=== PATIENT | male | born 1995 | race Caucasian/White ===

== ENCOUNTER 2016-09-24 00:48 | Inpatient (IN) | payer BC, OTHER ==
--- NOTE | 2016-09-24 00:57 | HP ---
CIWA Score - CIWA Score Nausea/Vomitin Muscle Tremors: 2 Anxiety: 2 Agitation: 2 Paroxysmal Sweats: 3 Orientation: 1-Uncertain about Date Tacttile Disturbances: 2-Mild Itch/Numbness/Burn Auditory Disturbances: 2-Mild Harshness/Frighten Visual Disturbances: 2-Mild Sensitivity Headache: 2-Mild CIWA-Ar Total Score: 20 Admission ROS BHS - HPI Chief Complaint: DEPENDENT ON ETOH AND MARIJUANA TOOK A TAB. OF BENZO. YESTERDAY FROM SOMEONE Allergies/Adverse Reactions: Allergies Allergy/AdvReac Type Severity Reaction Status Date / Time Fish Containing Products Allergy Difficulty Verified 02/09/14 00:17 Breathing fish derived Allergy Difficulty Verified 02/09/14 00:17 Breathing seafood Allergy Mild Difficulty Uncoded 02/09/14 00:18 Breathing History of Present Illness: REQUESTING ADMISSION TO THE DETOX UNIT AND CAME FOR H AND PE Exam Limitations: No Limitations - Ebola screening Have you traveled outside of the country in the last 21 days: No Have you had contact with anyone from an Ebola affected area: No Have you been sick,other than usual withdrawal symptoms: No Do you have a fever: No - Review of Systems Constitutional: See HPI, Malaise, Weakness EENT: reports: No Symptoms Reported, See HPI Respiratory: reports: No Symptoms reported, See HPI Cardiac: reports: No Symptoms Reported, See HPI GI: reports: See HPI, Nausea, Abdominal cramping Musculoskeletal: reports: See HPI, Muscle Pain, Muscle Weakness Integumentary: reports: See HPI, Flushing, Sweating Neuro: reports: See HPI, Headache, Tremors, Weakness Endocrine: reports: No Symptoms Reported, See HPI Hematology: reports: No Symptoms Reported, See HPI Psychiatric: reports: Anxious, Depressed Patient History - Patient Medical History Hx Anemia: No Hx Asthma: Yes (on albuterol inhaler) Hx Chronic Obstructive Pulmonary Disease (COPD): No Hx Cancer: No Hx Cardiac Disorders: No Hx Congestive Heart Failure: No Hx Hypertension: No Hx Hypercholesterolemia: No Hx Pacemaker: No HX Cerebrovascular Accident: No Hx Seizures: No Hx Dementia: No Hx Diabetes: No Hx Gastrointestinal Disorders: No Hx Liver Disease: No Hx Genitourinary Disorders: No Hx Sexually Transmitted Disorders: No Hx Renal Disease (ESRD): No Hx Thyroid Disease: No Hx Human Immunodeficiency Virus (HIV): No Hx Hepatitis C: No Hx Depression: No Hx Suicide Attempt: No Hx Bipolar Disorder: No Hx Schizophrenia: No - Patient Surgical History Past Surgical History: No Hx Neurologic Surgery: No Hx Cataract Extraction: No Hx Cardiac Surgery: No Hx Lung Surgery: No Hx Breast Surgery: No Hx Breast Biopsy: No Hx Abdominal Surgery: No Hx Appendectomy: No Hx Cholecystectomy: No Hx Genitourinary Surgery: No Hx Section: No Hx Orthopedic Surgery: No Anesthesia Reaction: No - PPD History Date: 06/04/13 - Smoking Cessation Smoking history: Never smoked Have you smoked in the past 12 months: No Cigars Per Day: 0 Hx Chewing Tobacco Use: No Initiated information on smoking cessation: No 'Breaking Loose' booklet given: 09/24/16 - Substance & Tx. History Hx Alcohol Use: Yes Substance Use Type: Alcohol, Marijuana Hx Substance Use Treatment: Yes - Substances Abused Alcohol Route: Oral Frequency: Daily Amount used: BEER 6 CANS/LIQUOR 1 P/D Age of first use: 16 Date of Last Use: 09/23/16 Marijuana/Hashish Route: Smoking Frequency: Daily Amount used: $30-40/D Age of first use: 16 Date of Last Use: 09/22/16 Family Disease History - Family Disease History Family History: Denies Admission Physical Exam [facility] - Physical General Appearance: Yes: No Apparent Distress, Nourished, Appropriately Dressed , Alcohol on Breath, Tremorous, Sweating, Anxious HEENTM: Yes: Hearing grossly Normal, Normocephalic, Normal Voice, ZAHRAA Respiratory: Yes: Chest Non-Tender, Lungs Clear, Normal Breath Sounds, No Respiratory Distress, No Accessory Muscle Use Breast: Yes: Breast Exam Deferred Cardiology: Yes: Regular Rhythm, S1, S2, Tachycardia Abdominal: Yes: Normal Bowel Sounds, Non Tender, Soft, Protuberent Back: Yes: Normal Inspection Musculoskeletal: Yes: full range of Motion, Gait Steady, Muscle Pain, Muscle weakness Extremities: Yes: Normal Capillary Refill, Normal Range of Motion, Non-Tender, Tremors Neurological: Yes: Alert, Motor Strength 5/5, Confused, Depressed Affect Integumentary: Yes: Warm, Moist Lymphatic: Yes: Within Normal Limits - Addiitonal Findings: DISORIENTED NOW AND THEN DELAYED AND SLOW RESPONSE TO QUESTIONS NOTED - Diagnostic (1) Alcohol dependence Current Visit: Yes Status: Chronic Qualifiers: Substance use status: uncomplicated Qualified Code(s): F10.20 - Alcohol dependence, uncomplicated (2) Asthma Current Visit: No Status: Chronic Qualifiers: Asthma severity: unspecified severity (3) Cannabis dependence Current Visit: Yes Status: Chronic Cleared for Admission BHS - Detox or Rehab [facility] Level of Care: Medically Managed Detox Regimen/Protocol: Librium BHS Breath Alcohol Content Breath Alcohol Content: 0.055 Vital Signs - Vital Signs Vital Signs Refused: No Temperature: 97.3 F Temperature Source: Oral Pulse Rate: 90 Respiratory Rate: 14 Blood Pressure: 122/71 BP Location: Left Arm Blood Pressure Position: Sitting - Height Height: 5 ft 5 in - Weight Weight: 164 lb Weight Measurement Method: Standing Scale Body Mass Index (BMI): 27.3 Urine Drug Screen - Test Device Lot Number: [id number] Expiration Date: 05/29/18 - Control Is Test Valid: Yes - Results Drug Screen Negative: No Urine Drug Screen Results: THC-Marijuana, BZO-Benzodiazepines
[2016-09-24 01:10] VITALS: BMI 27.3
[2016-09-24] MEDS ORDERED: hydrOXYzine PAMOATE 25 MG CAPSULE (FP) PO PRN (01:10)
[2016-09-24] MEDS ORDERED: guaiFENesin/D-METHORPHAN HB 10 ML UNIT-DOSE CUPS PO PRN (01:10)
[2016-09-24] MEDS ORDERED: chlordiazePOXIDE HCL 25 MG CAPSULE PO PRN (01:10)
[2016-09-24] MEDS ORDERED: LOPERAMIDE HCL 2 MG CAPSULE PO PRN (01:10)
[2016-09-24] MEDS ORDERED: P-EPHED 60MG/TRIPROLIDI 2.5MG TABLET PO PRN (01:10)
[2016-09-24] MEDS ORDERED: IBUPROFEN 400 MG TABLET (FP) PO PRN (01:10)
[2016-09-24] MEDS ORDERED: MENTHOL/PHENOL 1 EACH UD MM PRN (01:10)
[2016-09-24] MEDS ORDERED: diphenhydrAMINE HCL 50 MG CAPSULE PO PRN (01:10)
[2016-09-24] MEDS ORDERED: MAGNESIUM HYDROX 2400MG/30ML ORAL SUSPENSION 30 ML CUP PO PRN (01:10)
[2016-09-24] MEDS ORDERED: MAGNESIUM CITRATE 300 ML BOTTLE PO PRN (01:10)
[2016-09-24] MEDS ORDERED: chlordiazePOXIDE HCL 25 MG CAPSULE PO ONE (01:10)
[2016-09-24] MEDS ORDERED: MAG HYDROX/AL HYDROX/SIMETH 30 ML UNIT-DOSE CUP PO PRN (01:10)
[2016-09-24] MEDS ORDERED: ACETAMINOPHEN 325 MG TABLET (FP) PO PRN (01:10)
[2016-09-24] MEDS ORDERED: ALBUTEROL SO4 2.5/IPRATROPIUM 0.5 INH SOL 3 ML VIAL.NEB. NEB PRN (01:13)
[2016-09-24] MEDS: chlordiazePOXIDE HCL 25 MG CAPSULE PO SCH ×4 (05:48→22:37)
[2016-09-24] MEDS ORDERED: PRENATAL VITAMINS W/ FOLIC ACID TABLET (FP) PO SCH (10:00)
--- NOTE | 2016-09-24 10:58 | EKG ---
Test Reason : Blood Pressure : / mmHG Vent. Rate : 092 BPM Atrial Rate : 092 BPM P-R Int : 162 ms QRS Dur : 092 ms QT Int : 356 ms P-R-T Axes : 061 062 049 degrees QTc Int : 440 ms NORMAL SINUS RHYTHM NORMAL ECG NO PREVIOUS ECGS AVAILABLE Confirmed by BINDU MCNEIL MD ([id number]) on 09/24/2016 10:57:39 AM Referred By: Confirmed By:BINDU MCNEIL MD
--- NOTE | 2016-09-24 11:52 | CONSULT ---
[facility] Psychiatric Consult - Data Date of interview: 09/24/16 Admission source: [facility] Identifying data: Readmission to [facility] for this 21 y/o male seeking detox treatment for alcohol and marijuana dependence.Patient is single without children,domiciled,unemployed and supported by relatives. Substance Abuse History: - Smoking Cessation. Smoking history: Never smoked. Have you smoked in the past 12 months: No. Cigars Per Day: 0. Hx Chewing Tobacco Use: No. Initiated information on smoking cessation: No. 'Breaking Loose' booklet given: 09/24/16. - Substance & Tx. History. Hx Alcohol Use: Yes. Substance Use Type: Alcohol, Marijuana. Hx Substance Use Treatment: Yes. - Substances Abused. Alcohol. Route: Oral. Frequency: Daily. Amount used: BEER 6 CANS/LIQUOR 1 P/D. Age of first use: 16. Date of Last Use: . Marijuana/Hashish. Route: Smoking. Frequency: Daily. Amount used: $30 -40/D. Age of first use: 16. Date of Last Use: 09/22/16. Confirmed by patient. Medical History: Bronchial asthma. Psychiatric History: Patient denies. Physical/Sexual Abuse/Trauma History: Patient denies. Additional Comment: Urine Drug Screen Results: THC-Marijuana, BZO- Benzodiazepines.Noted. Mental Status Exam - Mental Status Exam Alert and Oriented to: Time, Place, Person Cognitive Function: Good Patient Appearance: Well Groomed Mood: Hopeful, Euthymic Affect: Appropriate, Normal Range Patient Behavior: Fatigued, Appropriate, Cooperative Speech Pattern: Clear Voice Loudness: Normal Thought Process: Goal Oriented Thought Disorder: Not Present Hallucinations: Denies Suicidal Ideation: Denies Homicidal Ideation: Denies Insight/Judgement: Poor Sleep: Poorly, Difficulty falling asleep Appetite: Good Muscle strength/Tone: Normal Gait/Station: Normal Psychiatric Findings - Problem List ([place] 1, 2,3) (1) Alcohol dependence Current Visit: Yes Status: Acute Qualifiers: Substance use status: uncomplicated Qualified Code(s): F10.20 - Alcohol dependence, uncomplicated (2) Cannabis dependence Current Visit: Yes Status: Acute (3) Asthma Current Visit: Yes Status: Chronic Qualifiers: Asthma severity: unspecified severity - Initial Treatment Plan Initial Treatment Plan: Psychoeducation.Detoxification.Observation.
--- NOTE | 2016-09-24 14:26 | PN ---
S CIWA - CIWA Score Nausea/Vomitin Muscle Tremors: 4-Moderate,w/Arms Extend Anxiety: 4-Mod. Anxious/Guarded Agitation: 4-Moderately Restless Paroxysmal Sweats: 1-Minimal Palms Moist Orientation: 0-Oriented Tacttile Disturbances: 1-Very Mild Itch/Numbness Auditory Disturbances: 0-None Visual Disturbances: 0-None Headache: 2-Mild CIWA-Ar Total Score: 19 BHS Progress Note (SOAP) Subjective: Nausea, sweating, anxious, interrupted sleep, tremor, chills Objective: 09/24/16 14:23 Last Vital Signs Temp Pulse Resp BP Pulse Ox 96.2 F L 82 18 100/55 09/24/16 13:48 09/24/16 13:48 09/24/16 13:48 09/24/16 13:48 Admission labs in AM Assessment: 09/24/16 14:24 Withdrawal symptoms Plan: Continue detox, encouraged to drink lots of water Follow up on admission labs
[2016-09-24 14:40] LABS: URINE APPEARANCE CLEAR; URINE BILIRUBIN NEGATIVE (NEGATIVE); URINE BLOOD NEGATIVE (NEGATIVE); URINE COLOR YELLOW; URINE GLUCOSE (UA) NEGATIVE (NEGATIVE); URINE KETONE NEGATIVE (NEGATIVE); URINE LEUK ESTERASE NEGATIVE (NEGATIVE); URINE NITRITE NEGATIVE (NEGATIVE); URINE PROTEIN NEGATIVE (NEGATIVE); URINE UROBILINOGEN NEGATIVE E.U./dl (0.2-1.0)
[2016-09-24] MEDS ORDERED: THIAMINE HCL 100 MG TABLET (FP) PO SCH (22:00)
[2016-09-25] MEDS ORDERED: chlordiazePOXIDE HCL 25 MG CAPSULE PO SCH (05:00)
[2016-09-25 09:19] VITALS: BP 101/52; PULSE 60; TEMP 97
--- NOTE | 2016-09-25 11:13 | DS ---
[facility] Detox Discharge Summary Admission Date: 09/24/16 Discharge Date: 09/25/16 - History Present History: Alcohol Dependence, Cannabis Dependence Additional Comments: PT DECLINED TO CONTINUE WITH DETOX PERSONAL REASONS. ALERT O X 3. NAD. Pertinent Past History: ASTHMA - Physical Exam Results Vital Signs: Vital Signs Temperature 97.0 F L 09/25/16 09:19 Pulse Rate 60 09/25/16 09:19 Respiratory Rate 18 09/25/16 09:19 Blood Pressure 101/52 09/25/16 09:19 O2 Sat by Pulse Oximetry (%) Pertinent Admission Physical Exam Findings: WITHDRAWAL SX Laboratory Last Values Urine Color Yellow 09/24/16 09:10 Urine Appearance Clear 09/24/16 09:10 Urine pH 6.0 (5.0-8.0) 09/24/16 09:10 Ur Specific [place] 1.020 (1.005-1.025) 09/24/16 09:10 Urine Protein Negative (NEGATIVE) 09/24/16 09:10 Urine Glucose (UA) Negative (NEGATIVE) 09/24/16 09:10 Urine Ketones Negative (NEGATIVE) 09/24/16 09:10 Urine Blood Negative (NEGATIVE) 09/24/16 09:10 Urine Nitrite Negative (NEGATIVE) 09/24/16 09:10 Urine Bilirubin Negative (NEGATIVE) 09/24/16 09:10 Urine Urobilinogen Negative E.U./dl (0.2-1.0) 09/24/16 09:10 Ur Leukocyte Esterase Negative (NEGATIVE) 09/24/16 09:10 - Treatment Hospital Course: Discharged Condition Good - Medication Discharge Medications: Ambulatory Orders NK [No Known Home Medication] 09/24/16 - AMA Did Patient Leave Against Medical Advice: Yes (AMA)
[2016-09-25 12:11] LABS: MCH 32.7 pg (25.7-33.7); MCHC 33.8 g/dl (32.0-35.9); MEAN CELL VOLUME 96.8 fl (80-96); MEAN PLT VOLUME 8.7 fl (7.5-11.1); PLATELET COUNT 196 K/MM3 (134-434); RDW 13.1 % (11.9-15.9); WHITE BLOOD COUNT 4.9 K/mm3 (4.0-10.0)
[2016-09-25 12:18] LABS: ALBUMIN 3.8 g/dl (3.4-5.0)
[2016-09-25 12:24] LABS: ALK PHOS 69 U/L (45-117); ANION GAP 4 (8-16); BILIRUBIN,TOTAL 0.5 mg/dL (0.2-1.0); CALCIUM 8.8 mg/dL (8.5-10.1); CO2 33 mmol/L (21-32); COCKROFT - GAULT 135.46; CREATININE 0.9 mg/dL (0.7-1.3); GLUCOSE,RANDOM 82 mg/dL (74-106); SGOT/AST 11 U/L (15-37); SGPT/ALT 18 U/L (12-78); TOT PROT 6.4 g/dl (6.4-8.2)
[2016-09-26] MEDS ORDERED: chlordiazePOXIDE 5 MG CAPSULE PO SCH (05:00)
[2016-09-27] MEDS ORDERED: chlordiazePOXIDE HCL 10 MG CAPSULE PO SCH (05:00)
== END 2016-09-25 10:23 | disposition left against medical advice (07) | DRG 770 ==
LOC: YASAS 00:48 → Y3N 00:57
PROVIDERS: ADMIT Internal Medicine; ATTEND Internal Medicine
PROC: HZ2ZZZZ Detoxification Services for Substance Abuse Treatment (ICD-10-PCS; principal; 2016-09-24)
DX: F10.230 Alcohol dependence with withdrawal, uncomplicated (principal); F12.20 Cannabis dependence, uncomplicated; J45.909 Unspecified asthma, uncomplicated; R00.0 Tachycardia, unspecified
CPT/HCPCS: 36415; 80053; 81003; 85027; 86593; 93005; 93010

== ENCOUNTER 2017-07-11 08:27 | Inpatient (IN) | payer BC ==
[2017-07-11 09:29] VITALS: BMI 29.0
--- NOTE | 2017-07-11 11:26 | HP ---
CIWA Score - CIWA Score Nausea/Vomitin Muscle Tremors: 3 Anxiety: 3 Agitation: 3 Paroxysmal Sweats: 3 Orientation: 0-Oriented Tacttile Disturbances: 0-None Auditory Disturbances: 0-None Visual Disturbances: 0-None Headache: 1-Very Mild CIWA-Ar Total Score: 16 Admission ROS S - HPI Chief Complaint: alcohol withdrawal sx Allergies/Adverse Reactions: Allergies Allergy/AdvReac Type Severity Reaction Status Date / Time Fish Containing Products Allergy Difficulty Verified 07/11/17 09:37 Breathing fish derived Allergy Difficulty Verified 07/11/17 09:37 Breathing seafood Allergy Mild Difficulty Uncoded 07/11/17 09:37 Breathing History of Present Illness: 22 yo m with sever alcohol use diorder, s/p multiple admissions to [facility] for inaptiet detox because fo alcohol withdrawal sx when he does drink. no h/o seiures, DTs , or si. thristy dehydrated, anxiety depression and insomnia when he does not drink. Exam Limitations: No Limitations - Ebola screening Have you traveled outside of the country in the last 21 days: No (N) Have you had contact with anyone from an Ebola affected area: No Have you been sick,other than usual withdrawal symptoms: No Do you have a fever: No - Review of Systems Constitutional: Night Sweats, Changes in sleep, Weight Stable EENT: reports: No Symptoms Reported Respiratory: reports: No Symptoms reported Cardiac: reports: No Symptoms Reported GI: reports: Nausea, Poor Appetite, Poor Fluid Intake, Indigestion, Abdominal cramping : reports: No Symptoms Reported Musculoskeletal: reports: No Symptoms Reported Integumentary: reports: Flushing, Sweating Neuro: reports: Headache, Tremors Endocrine: reports: Increased Thirst Hematology: reports: No Symptoms Reported Psychiatric: reports: Judgement Intact, Mood/Affect Appropiate, Orientated x3, Anxious, Depressed Other Systems: Reviewed and Negative Patient History - Patient Medical History Hx Anemia: No Hx Asthma: Yes Hx Chronic Obstructive Pulmonary Disease (COPD): No Hx Cancer: No Hx Cardiac Disorders: No Hx Congestive Heart Failure: No Hx Hypertension: No Hx Hypercholesterolemia: No Hx Pacemaker: No HX Cerebrovascular Accident: No Hx Seizures: No Hx Dementia: No Hx Diabetes: No Hx Gastrointestinal Disorders: No Hx Liver Disease: No Hx Genitourinary Disorders: No Hx Sexually Transmitted Disorders: No Hx Renal Disease (ESRD): No Hx Thyroid Disease: No Hx Human Immunodeficiency Virus (HIV): No Hx Hepatitis C: No Hx Depression: Yes (when he deos not drink) Hx Suicide Attempt: No (no si at thsi time) Hx Bipolar Disorder: No Hx Schizophrenia: No - Patient Surgical History Past Surgical History: No Hx Neurologic Surgery: No Hx Cataract Extraction: No Hx Cardiac Surgery: No Hx Lung Surgery: No Hx Breast Surgery: No Hx Breast Biopsy: No Hx Abdominal Surgery: No Hx Appendectomy: No Hx Cholecystectomy: No Hx Genitourinary Surgery: No Hx Section: No Hx Orthopedic Surgery: No Anesthesia Reaction: No - PPD History Date: 09/26/16 Results: 0mm PPD to be Administered?: No - Reproductive History Patient is a Female of Child Bearing Age (11 -55 yrs old): No Patient : No - Smoking Cessation Smoking history: Never smoked Have you smoked in the past 12 months: No Aproximately how many cigarettes per day: 1 Cigars Per Day: 0 Hx Chewing Tobacco Use: No Initiated information on smoking cessation: Yes 'Breaking Loose' booklet given: 07/11/17 - Substance & Tx. History Hx Alcohol Use: Yes Hx Substance Use: Yes Substance Use Type: Marijuana Hx [facility] - Substances Abused Alcohol Route: Oral Frequency: Daily Amount used: 1PINT E&J LIQUOR Age of first use: 17 Date of Last Use: 07/08/17 Marijuana/Hashish Route: Smoking Frequency: 1-2 times per week Amount used: 2 BLUNTS Age of first use: 16 Date of Last Use: 07/09/17 Family Disease History - Family Disease History Family History: Denies Admission Physical Exam S - Vital Signs Vital Signs: Vital Signs - 24 hr 07/11/17 09:28 Temperature 98 F Pulse Rate 90 Respiratory 20 Rate Blood Pressure 132/74 - Physical General Appearance: Yes: Nourished, Appropriately Dressed, Disheveled, Mild Distress, Tremorous, Irritable, Sweating, Anxious HEENTM: Yes: Within Normal Limits, EOMI, Hearing grossly Normal, Normal ENT Inspection, Normocephalic, Normal Voice, ZAHRAA, Pharynx Normal Respiratory: Yes: Within Normal Limits, Chest Non-Tender, Lungs Clear, Normal Breath Sounds, No Respiratory Distress, No Accessory Muscle Use Neck: Yes: Within Normal Limits, No masses,lesions,Nodules, Supple, Trachea in good position Breast: Yes: Breast Exam Deferred Cardiology: Yes: Within Normal Limits, Regular Rhythm, Regular Rate Abdominal: Yes: Within Normal Limits, Normal Bowel Sounds, Non Tender, Flat, Soft, Increased Bowel Sounds Genitourinary: Yes: Within Normal Limits Back: Yes: Within Normal Limits, Normal Inspection Musculoskeletal: Yes: Within Normal Limits, full range of Motion, Gait Steady, Pelvis Stable Extremities: Yes: Normal Capillary Refill, Normal Range of Motion, Non-Tender, Tremors Neurological: Yes: 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 II-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 NML intact, Fully Oriented, Alert, Motor Strength 5/5, Normal Response, Depressed Affect Integumentary: Yes: Normal Color, Warm, Diaphoresis, Moist Lymphatic: Yes: Within Normal Limits - Addiitonal Findings: withdrawal sx present - Diagnostic (1) Dehydration Current Visit: Yes Status: Acute (2) Alcohol dependence with uncomplicated withdrawal Current Visit: Yes Status: Acute (3) Cannabis dependence Current Visit: No Status: Acute (4) Mood disorder Current Visit: No Status: Acute (5) Anxiety Current Visit: No Status: Chronic (6) Asthma Current Visit: No Status: Chronic Qualifiers: Asthma severity: unspecified severity (7) Depression Current Visit: No Status: Chronic Cleared for Admission [facility] - Detox or Rehab [facility] Level of Care: Medically Managed Detox Regimen/Protocol: Librium [facility] Breath Alcohol Content Breath Alcohol Content: 0 Urine Drug Screen - Results Drug Screen Negative: No Urine Drug Screen Results: THC-Marijuana
[2017-07-11] MEDS ORDERED: P-EPHED 60MG/TRIPROLIDI 2.5MG TABLET PO PRN (11:27)
[2017-07-11] MEDS ORDERED: MAGNESIUM HYDROX 2400MG/30ML ORAL SUSPENSION 30 ML CUP PO PRN (11:27)
[2017-07-11] MEDS ORDERED: MAGNESIUM CITRATE 300 ML BOTTLE PO PRN (11:27)
[2017-07-11] MEDS ORDERED: MAG HYDROX/AL HYDROX/SIMETH 30 ML UNIT-DOSE CUP PO PRN (11:27)
[2017-07-11] MEDS ORDERED: LOPERAMIDE HCL 2 MG CAPSULE PO PRN (11:27)
[2017-07-11] MEDS ORDERED: MENTHOL/PHENOL 1 EACH UD MM PRN (11:27)
[2017-07-11] MEDS ORDERED: chlordiazePOXIDE HCL 25 MG CAPSULE PO PRN (11:27)
[2017-07-11] MEDS ORDERED: hydrOXYzine PAMOATE 50 MG CAPSULE (FP) PO PRN (11:27)
[2017-07-11] MEDS ORDERED: IBUPROFEN 400 MG TABLET (FP) PO PRN (11:27)
[2017-07-11] MEDS ORDERED: guaiFENesin/D-METHORPHAN HB 10 ML UNIT-DOSE CUPS PO PRN (11:27)
[2017-07-11] MEDS ORDERED: ALBUTEROL SO4 18 GM HFA INHALER IH PRN (11:29)
[2017-07-11] MEDS ORDERED: chlordiazePOXIDE HCL 25 MG CAPSULE PO ONE (11:55)
--- NOTE | 2017-07-11 12:42 | CONSULT ---
[facility] Psychiatric Consult - Data Date of interview: 07/11/17 Admission source: [facility] Identifying data: Pt. is a 22 year old ind[place]ian male single male, without kids, unemployed, living in a [place] and receiving SSI. This is one of multiple admissions for patient. Pt. admitted to for alcohol and cannabis dependence. Substance Abuse History: Following information confirmed by Mr. Vega: Smoking Cessation. Smoking history: Never smoked. Have you smoked in the past 12 months: No. Aproximately how many cigarettes per day: 1. Cigars Per Day: 0. Hx Chewing Tobacco Use: No. Initiated information on smoking cessation: Yes. ' Breaking Loose' booklet given: 07/11/17. - Substance & Tx. History. Hx Alcohol Use: Yes. Hx Substance Use: Yes. Substance Use Type: Marijuana. Hx Substance Use Treatment: Yes ([facility] - Substances Abused. Alcohol. Route: Oral. Frequency: Daily. Amount used: 1PINT E&J LIQUOR. Age of first use: 17. Date of Last Use: 07/08/17. Marijuana/ Hashish. Route: Smoking. Frequency: 1-2 times per week. Amount used: 2 BLUNTS. Age of first use: 16. Date of Last Use: 07/09/17 Medical History: Asthma Psychiatric History: Patient's first encounter with a psychiatrist was at the age of 11 after exhibiting explosive behavior. Pt. said he saw an outpatient psychiatrist on and off until he was approximately 13 years of age and was prescribed Seroquel. Reports he has not taken any psychotrophic medications since 13 years of age. Pt. denies outpatient care as an adult. Pt. also denies h /o psychatric hospitalizations and suicide attempt. Physical/Sexual Abuse/Trauma History: Denies. Mental Status Exam - Mental Status Exam Alert and Oriented to: Time, Place, Person Cognitive Function: Good Patient Appearance: Well Groomed Mood: Euthymic Affect: Appropriate Patient Behavior: Appropriate, Cooperative Speech Pattern: Clear, Appropriate Voice Loudness: Normal Thought Process: Goal Oriented Thought Disorder: Not Present Hallucinations: Denies Suicidal Ideation: Denies Homicidal Ideation: Denies Insight/Judgement: Poor Sleep: Fair Appetite: Good Muscle strength/Tone: Normal Gait/Station: Normal Psychiatric Findings - Problem List ([place] 1, 2,3) (1) Alcohol dependence with uncomplicated withdrawal Current Visit: Yes Status: Acute (2) Cannabis dependence Current Visit: Yes Status: Acute (3) Substance induced mood disorder Current Visit: Yes Status: Suspected - Initial Treatment Plan Initial Treatment Plan: Psychoeducation provided. Detoxification in progress. Observation.
--- NOTE | 2017-07-11 16:43 | EKG ---
Test Reason : Blood Pressure : / mmHG Vent. Rate : 080 BPM Atrial Rate : 080 BPM P-R Int : 148 ms QRS Dur : 098 ms QT Int : 360 ms P-R-T Axes : 034 046 039 degrees QTc Int : 415 ms NORMAL SINUS RHYTHM NORMAL ECG WHEN COMPARED WITH ECG OF 24-SEP-2016 00:47, NO SIGNIFICANT CHANGE WAS FOUND Confirmed by TALITA MICHAELS MD ([id number]) on 07/11/2017 4:43:20 PM Referred By: Confirmed By:TALITA MICHAELS MD
[2017-07-11 17:23] LABS: URINE APPEARANCE TURBID; URINE BILIRUBIN NEGATIVE (NEGATIVE); URINE BLOOD NEGATIVE (NEGATIVE); URINE COLOR YELLOW; URINE GLUCOSE (UA) NEGATIVE (NEGATIVE); URINE KETONE NEGATIVE (NEGATIVE); URINE LEUK ESTERASE NEGATIVE (NEGATIVE); URINE NITRITE NEGATIVE (NEGATIVE); URINE PROTEIN NEGATIVE (NEGATIVE); URINE UROBILINOGEN NEGATIVE mg/dL (0.2-1.0)
[2017-07-11] MEDS: chlordiazePOXIDE HCL 25 MG CAPSULE PO SCH ×2 (17:31→22:49)
[2017-07-11] MEDS: THIAMINE HCL 100 MG TABLET (FP) PO SCH (22:49)
[2017-07-11] MEDS: ACETAMINOPHEN 325 MG TABLET (FP) PO PRN (23:25)
[2017-07-12] MEDS: chlordiazePOXIDE HCL 25 MG CAPSULE PO SCH ×4 (06:15→22:44)
[2017-07-12 10:15] LABS: HEMATOCRIT 41.5 % (35.4-49); HEMOGLOBIN 14.3 GM/dL (11.7-16.9); MCH 32.9 pg (25.7-33.7); MCHC 34.3 g/dl (32.0-35.9); MEAN CELL VOLUME 95.9 fl (80-96); MEAN PLT VOLUME 8.7 fl (7.5-11.1); PLATELET COUNT 286 K/MM3 (134-434); RBC 4.33 M/mm3 (4.00-5.60); RDW 13.4 % (11.9-15.9); WHITE BLOOD COUNT 6.3 K/mm3 (4.0-10.0)
[2017-07-12 10:25] LABS: ALBUMIN 4.1 g/dl (3.4-5.0); ANION GAP 13 (8-16); BLOOD UREA NITROGEN 11 mg/dL (7-18); CALCIUM 9.1 mg/dL (8.5-10.1); CHLORIDE 103 mmol/L (98-107); CO2 24 mmol/L (21-32); CREATININE 0.8 mg/dL (0.7-1.3); GLUCOSE,RANDOM 124 mg/dL (74-106); POTASSIUM 3.7 mmol/L (3.5-5.1); SGOT/AST 57 U/L (15-37); SGPT/ALT 34 U/L (12-78); SODIUM 140 mmol/L (136-145)
[2017-07-12 10:26] LABS: ALK PHOS 72 U/L (45-117); BILIRUBIN,TOTAL 0.6 mg/dL (0.2-1.0); TOT PROT 7.7 g/dl (6.4-8.2)
[2017-07-12] MEDS: PRENATAL VITAMINS W/ FOLIC ACID TABLET (FP) PO SCH (10:52)
[2017-07-12] MEDS ORDERED: FLU VACCINE QUAD 60 MCG/0.5 ML (MDV 17-18) IM ONE (12:00)
[2017-07-12] MEDS: ACETAMINOPHEN 325 MG TABLET (FP) PO PRN (12:17)
--- NOTE | 2017-07-12 16:01 | PN ---
[facility] CIWA - CIWA Score Nausea/Vomitin-No Nausea/No Vomiting Muscle Tremors: None Anxiety: 3 Agitation: 0-Normal Activity Paroxysmal Sweats: 3 Orientation: 2-Disoriented Date<2 days Tacttile Disturbances: 2-Mild Itch/Numbness/Burn Auditory Disturbances: 0-None Visual Disturbances: 2-Mild Sensitivity Headache: 4-Moderately Severe CIWA-Ar Total Score: 16 BHS Progress Note (SOAP) Subjective: Sweating, Anxious, Interrupted Sleep, Fatigue, H/A. Objective: PATIENT A & O X 2 (UNCERTAIN ABOUT CURRENT DAY / DATE). PATIENT OBSERVED AMBULATING ON UNIT. NO ACUTE DISTRESS. 07/12/17 16:02 Vital Signs Temperature 98 F 07/12/17 14:25 Pulse Rate 81 07/12/17 14:25 Respiratory Rate 18 07/12/17 14:25 Blood Pressure 111/73 07/12/17 14:25 O2 Sat by Pulse Oximetry (%) Laboratory Tests 07/11/17 07/12/17 07/12/17 14:00 06:00 06:00 WBC 6.3 RBC 4.33 Hgb 14.3 Hct 41.5 MCV 95.9 MCH 32.9 MCHC 34.3 RDW 13.4 Plt Count 286 D MPV 8.7 Sodium Potassium Chloride Carbon Dioxide Anion Gap BUN Creatinine Creat Clearance w eGFR Random Glucose Calcium Total Bilirubin AST ALT Alkaline Phosphatase Total Protein Albumin Urine Color Yellow Urine Appearance Turbid Urine pH 7.0 Ur Specific [place] 1.019 Urine Protein Negative Urine Glucose (UA) Negative Urine Ketones Negative Urine Blood Negative Urine Nitrite Negative Urine Bilirubin Negative Urine Urobilinogen Negative Ur Leukocyte Esterase Negative RPR Titer HIV 1&2 Antibody Screen Negative HIV P24 Antigen Negative 07/12/17 07/12/17 06:00 06:00 WBC RBC Hgb Hct MCV MCH MCHC RDW Plt Count MPV Sodium 140 Potassium 3.7 Chloride 103 Carbon Dioxide 24 D Anion Gap 13 BUN 11 Creatinine 0.8 Creat Clearance w eGFR > 60 Random Glucose 124 H D Calcium 9.1 Total Bilirubin 0.6 AST 57 H D ALT 34 D Alkaline Phosphatase 72 Total Protein 7.7 D Albumin 4.1 Urine Color Urine Appearance Urine pH Ur Specific [place] Urine Protein Urine Glucose (UA) Urine Ketones Urine Blood Urine Nitrite Urine Bilirubin Urine Urobilinogen Ur Leukocyte Esterase RPR Titer Nonreactive HIV 1&2 Antibody Screen HIV P24 Antigen LABS NOTED. HCV AB RESULT PENDING. 07/12/17 16:03 Assessment: 07/12/17 16:02 WITHDRAWAL SYMPTOMS. Plan: CONTINUE DETOX.
[2017-07-12] MEDS: THIAMINE HCL 100 MG TABLET (FP) PO SCH (22:44)
[2017-07-13] MEDS: chlordiazePOXIDE HCL 25 MG CAPSULE PO SCH ×2 (06:06→10:13)
[2017-07-13] MEDS: PRENATAL VITAMINS W/ FOLIC ACID TABLET (FP) PO SCH (10:13)
[2017-07-13] MEDS: chlordiazePOXIDE 5 MG CAPSULE PO SCH ×2 (17:42→22:07)
--- NOTE | 2017-07-13 18:18 | PN ---
S CIWA - CIWA Score Nausea/Vomitin-No Nausea/No Vomiting Muscle Tremors: 2 Anxiety: 4-Mod. Anxious/Guarded Agitation: 2 Paroxysmal Sweats: 3 Orientation: 0-Oriented Tacttile Disturbances: 3-Moderate Itch/Numb/Burn Auditory Disturbances: 0-None Visual Disturbances: 0-None Headache: 0-None Present CIWA-Ar Total Score: 14 BHS Progress Note (SOAP) Subjective: Sweating, Tremors, Anxious, Interrupted Sleep. Objective: PATIENT A & O X 3, OBSERVED AMBULATING ON UNIT. NO ACUTE DISTRESS. 07/13/17 18:17 Vital Signs Temperature 98.0 F 07/13/17 15:06 Pulse Rate 98 H 07/13/17 15:06 Respiratory Rate 16 07/13/17 15:06 Blood Pressure 117/71 07/13/17 15:06 O2 Sat by Pulse Oximetry (%) Laboratory Tests 07/11/17 07/12/17 07/12/17 14:00 06:00 06:00 WBC 6.3 RBC 4.33 Hgb 14.3 Hct 41.5 MCV 95.9 MCH 32.9 MCHC 34.3 RDW 13.4 Plt Count 286 D MPV 8.7 Sodium Potassium Chloride Carbon Dioxide Anion Gap BUN Creatinine Creat Clearance w eGFR Random Glucose Calcium Total Bilirubin AST ALT Alkaline Phosphatase Total Protein Albumin Urine Color Yellow Urine Appearance Turbid Urine pH 7.0 Ur Specific [place] 1.019 Urine Protein Negative Urine Glucose (UA) Negative Urine Ketones Negative Urine Blood Negative Urine Nitrite Negative Urine Bilirubin Negative Urine Urobilinogen Negative Ur Leukocyte Esterase Negative RPR Titer Hep C Ab Diagnostic HIV 1&2 Antibody Screen Negative HIV P24 Antigen Negative 07/12/17 07/12/17 07/12/17 06:00 06:00 06:00 WBC RBC Hgb Hct MCV MCH MCHC RDW Plt Count MPV Sodium 140 Potassium 3.7 Chloride 103 Carbon Dioxide 24 D Anion Gap 13 BUN 11 Creatinine 0.8 Creat Clearance w eGFR > 60 Random Glucose 124 H D Calcium 9.1 Total Bilirubin 0.6 AST 57 H D ALT 34 D Alkaline Phosphatase 72 Total Protein 7.7 D Albumin 4.1 Urine Color Urine Appearance Urine pH Ur Specific [place] Urine Protein Urine Glucose (UA) Urine Ketones Urine Blood Urine Nitrite Urine Bilirubin Urine Urobilinogen Ur Leukocyte Esterase RPR Titer Nonreactive Hep C Ab Diagnostic <0.1 HIV 1&2 Antibody Screen HIV P24 Antigen LABS NOTED. Assessment: 07/13/17 18:18 WITHDRAWAL SYMPTOMS. Plan: CONTINUE DETOX. INCREASE DAILY PO FLUID INTAKE.
[2017-07-13] MEDS: THIAMINE HCL 100 MG TABLET (FP) PO SCH (22:07)
[2017-07-14] MEDS: chlordiazePOXIDE 5 MG CAPSULE PO SCH ×2 (06:08→11:28)
[2017-07-14] MEDS: PRENATAL VITAMINS W/ FOLIC ACID TABLET (FP) PO SCH (11:28)
--- NOTE | 2017-07-14 16:24 | PN ---
[facility] Progress Note (SOAP) Subjective: Sweating, interrupted sleep Objective: 07/14/17 16:23 Last Vital Signs Temp Pulse Resp BP Pulse Ox 98.0 F 90 18 117/69 07/14/17 14:47 07/14/17 14:47 07/14/17 14:47 07/14/17 14:47 Laboratory Tests 07/11/17 07/12/17 07/12/17 14:00 06:00 06:00 WBC 6.3 RBC 4.33 Hgb 14.3 Hct 41.5 MCV 95.9 MCH 32.9 MCHC 34.3 RDW 13.4 Plt Count 286 D MPV 8.7 Sodium Potassium Chloride Carbon Dioxide Anion Gap BUN Creatinine Creat Clearance w eGFR Random Glucose Calcium Total Bilirubin AST ALT Alkaline Phosphatase Total Protein Albumin Urine Color Yellow Urine Appearance Turbid Urine pH 7.0 Ur Specific [place] 1.019 Urine Protein Negative Urine Glucose (UA) Negative Urine Ketones Negative Urine Blood Negative Urine Nitrite Negative Urine Bilirubin Negative Urine Urobilinogen Negative Ur Leukocyte Esterase Negative RPR Titer Hep C Ab Diagnostic HIV 1&2 Antibody Screen Negative HIV P24 Antigen Negative 07/12/17 07/12/17 07/12/17 06:00 06:00 06:00 WBC RBC Hgb Hct MCV MCH MCHC RDW Plt Count MPV Sodium 140 Potassium 3.7 Chloride 103 Carbon Dioxide 24 D Anion Gap 13 BUN 11 Creatinine 0.8 Creat Clearance w eGFR > 60 Random Glucose 124 H D Calcium 9.1 Total Bilirubin 0.6 AST 57 H D ALT 34 D Alkaline Phosphatase 72 Total Protein 7.7 D Albumin 4.1 Urine Color Urine Appearance Urine pH Ur Specific [place] Urine Protein Urine Glucose (UA) Urine Ketones Urine Blood Urine Nitrite Urine Bilirubin Urine Urobilinogen Ur Leukocyte Esterase RPR Titer Nonreactive Hep C Ab Diagnostic <0.1 HIV 1&2 Antibody Screen HIV P24 Antigen Labs noted Assessment: 07/14/17 16:23 Withdrawal symptoms Plan: Continue detox Encouraged increased PO hydration (water)
[2017-07-14] MEDS: chlordiazePOXIDE HCL 10 MG CAPSULE PO SCH ×2 (17:36→22:58)
[2017-07-14] MEDS: THIAMINE HCL 100 MG TABLET (FP) PO SCH (22:56)
[2017-07-15] MEDS: chlordiazePOXIDE HCL 10 MG CAPSULE PO SCH ×2 (06:07→11:40)
[2017-07-15 09:14] VITALS: BP 118/74; PULSE 89; TEMP 96
[2017-07-15] MEDS: PRENATAL VITAMINS W/ FOLIC ACID TABLET (FP) PO SCH (10:39)
--- NOTE | 2017-07-15 13:12 | PN ---
S Progress Note (SOAP) Subjective: Feels okay Objective: 07/15/17 13:10 A & O x 3 Vital Signs Temperature 96.0 F L 07/15/17 09:13 Pulse Rate 89 07/15/17 09:13 Respiratory Rate 18 07/15/17 09:13 Blood Pressure 118/74 07/15/17 09:13 O2 Sat by Pulse Oximetry (%) Assessment: 07/15/17 13:11 for discharge Plan: For transfer to in house rehab
--- NOTE | 2017-07-15 13:14 | DS ---
[facility] Detox Discharge Summary Admission Date: 07/11/17 Discharge Date: 07/15/17 - History Additional Comments: A & O x 3 and in no acute distress patient for transfer to [facility] rehab - Physical Exam Results Vital Signs: Vital Signs Temperature 96.0 F L 07/15/17 09:13 Pulse Rate 89 07/15/17 09:13 Respiratory Rate 07/15/17 09:13 Blood Pressure 118/74 07/15/17 09:13 O2 Sat by Pulse Oximetry (%) Pertinent Admission Physical Exam Findings: withdrawal sx - Treatment Hospital Course: Detox Protocol Followed, Detoxed Safely, Responded well, Discharged Condition Good, Rehab Referral Accepted Patient has Accepted a Rehab Referral to: [facility] rehab - Medication Discharge Medications: Ambulatory Orders NK [No Known Home Medication] 09/24/16 - Diagnosis (1) Alcohol dependence with uncomplicated withdrawal Status: Acute (2) Dehydration Status: Acute (3) Substance induced mood disorder Status: Acute (4) Anxiety Status: Chronic (5) Asthma Status: Chronic Qualifiers: Asthma severity: unspecified severity Asthma persistence: unspecified Asthma complication type: unspecified Qualified Code(s): J45.909 - Unspecified asthma, uncomplicated (6) Cannabis dependence Status: Chronic (7) Depression Status: Chronic - AMA Did Patient Leave Against Medical Advice: No
== END 2017-07-15 12:10 | disposition other institution (70) | DRG 775 ==
LOC: YASAS 08:27 → Y3N 11:22
PROVIDERS: ADMIT Internal Medicine; ATTEND Internal Medicine
PROC: HZ2ZZZZ Detoxification Services for Substance Abuse Treatment (ICD-10-PCS; principal; 2017-07-11)
DX: F10.230 Alcohol dependence with withdrawal, uncomplicated (principal); F12.20 Cannabis dependence, uncomplicated; F19.24 Other psychoactive substance dependence with psychoactive substance-induced mood disorder; F41.9 Anxiety disorder, unspecified; F32.9 Major depressive disorder, single episode, unspecified; J45.909 Unspecified asthma, uncomplicated; E86.0 Dehydration; Z59.0 Homelessness
CPT/HCPCS: 36415; 80053; 81003; 85027; 86593; 87389; 90688; 93005; 93010

== ENCOUNTER 2017-07-15 12:15 | Inpatient (IN) | payer BC ==
[2017-07-15] MEDS ORDERED: MENTHOL/PHENOL 1 EACH UD MM PRN (14:34)
[2017-07-15] MEDS ORDERED: MAGNESIUM HYDROX 2400MG/30ML ORAL SUSPENSION 30 ML CUP PO PRN (14:34)
[2017-07-15] MEDS ORDERED: ACETAMINOPHEN 325 MG TABLET (FP) PO PRN (14:34)
[2017-07-15] MEDS ORDERED: guaiFENesin/D-METHORPHAN HB 10 ML UNIT-DOSE CUPS PO PRN (14:34)
[2017-07-15] MEDS ORDERED: P-EPHED 60MG/TRIPROLIDI 2.5MG TABLET PO PRN (14:34)
[2017-07-15] MEDS ORDERED: LOPERAMIDE HCL 2 MG CAPSULE PO PRN (14:34)
[2017-07-15] MEDS ORDERED: MAG HYDROX/AL HYDROX/SIMETH 30 ML UNIT-DOSE CUP PO PRN (14:34)
[2017-07-15] MEDS ORDERED: hydrOXYzine PAMOATE 50 MG CAPSULE (FP) PO PRN (14:34)
[2017-07-15] MEDS ORDERED: MAGNESIUM CITRATE 300 ML BOTTLE PO PRN (14:34)
--- NOTE | 2017-07-15 14:38 | HP ---
[facility] Rehab Assess/Revision - Admission History Admitted to Rehab from: [facility] Date of Admission to Rehab: 07/15/17 - Findings Detox History & Physical reviewed: Yes Concur with findings: Yes Inpatient Rehab Admission - Initial Determination Are CD services needed?: Yes Free of communicable disease: Yes Not in need of hospitalization: Yes - Rehab Admission Criteria Previous failed treatment: Yes Poor recovery environment: Yes Comorbidities: Yes Lacks judgement: Yes Patient is meeting Inpatient Rehab admission criteria:: Yes
[2017-07-15] MEDS: CYCLOBENZAPRINE HCL 5 MG TABLET PO PRN (19:04)
[2017-07-15] MEDS: THIAMINE HCL 100 MG TABLET (FP) PO SCH (21:50)
[2017-07-16] MEDS: PRENATAL VITAMINS W/ FOLIC ACID TABLET (FP) PO SCH (10:06)
--- NOTE | 2017-07-16 14:45 | HP ---
Psychiatrist Admission - Data Date of interview: 07/16/17 Admission source: 3N Identifying data: [facility] for this 22 year old single male unemployed and on SSI, residing [place]. Medical History: Asthma, smokes cigarettes one a day. Psychiatric History: Patient is poor historian, he denies history of psychiatric treatment, but according to his last 5N treatment was started Seroquel which was adjusted during his treatment, apparently he stopped medications, was seen by our psychiatrist while in detox each time he was at [facility], patient declined treatment. Physical/Sexual Abuse/Trauma History: Denies history of abuse. Vital Signs: Vital Signs - 24 hr 07/16/17 07/16/17 07/16/17 00:46 03:30 06:46 Temperature 98.2 F Pulse Rate 78 Respiratory 16 16 18 Rate Blood Pressure 115/68 Allergies/Adverse Reactions: Allergies Allergy/AdvReac Type Severity Reaction Status Date / Time fish derived Allergy Mild Difficulty Verified 07/12/17 18:13 Breathing shellfish derived Allergy Mild Difficulty Verified 07/12/17 18:13 Breathing Fish Containing Products Allergy Difficulty Verified 07/11/17 09:37 Breathing No Known Drug Allergies Allergy Verified 07/15/17 13:49 seafood Allergy Mild Difficulty Uncoded 07/11/17 09:37 Breathing Date of last physical exam: 07/11/17 Concur with the findings of this exam: Yes - Substance Abuse/Tx History Hx Alcohol Use: Yes (1 pint daily) Hx Substance Use: Yes Substance Use Type: Marijuana (daily use 2 blunts) Hx Substance Use Treatment: Yes (5N in 2013, several [facility] detox.) Mental Status Exam - Mental Status Exam Alert and Oriented to: Place, Person Cognitive Function: Grossly Intact Patient Appearance: Disheveled Mood: Irritable Affect: Mood Congruent, Constricted Patient Behavior: Fatigued, Guarded Speech Pattern: Clear Voice Loudness: Normal Thought Process: Goal Oriented Thought Disorder: Not Present Hallucinations: Denies Suicidal Ideation: Denies Homicidal Ideation: Denies Insight/Judgement: Fair Sleep: Fair Appetite: Fair Muscle strength/Tone: Normal Gait/Station: Normal Psychiatric Findings - Problem List ([place] 1, 2,3) (1) Alcohol dependence Current Visit: Yes Status: Acute (2) Substance induced mood disorder Current Visit: No Status: Acute (3) Cannabis dependence Current Visit: No Status: Chronic - Initial Treatment Plan Initial Treatment Plan: Will monitor progress as needed.
[2017-07-16] MEDS: IBUPROFEN 400 MG TABLET (FP) PO PRN ×2 (15:37→21:38)
[2017-07-16] MEDS: CYCLOBENZAPRINE HCL 5 MG TABLET PO PRN (21:38)
[2017-07-16] MEDS: THIAMINE HCL 100 MG TABLET (FP) PO SCH (21:39)
[2017-07-17] MEDS: PRENATAL VITAMINS W/ FOLIC ACID TABLET (FP) PO SCH (10:59)
[2017-07-17] MEDS: IBUPROFEN 400 MG TABLET (FP) PO PRN (21:46)
[2017-07-17] MEDS: CYCLOBENZAPRINE HCL 5 MG TABLET PO PRN (21:47)
[2017-07-17] MEDS: THIAMINE HCL 100 MG TABLET (FP) PO SCH (21:47)
[2017-07-18] MEDS: PRENATAL VITAMINS W/ FOLIC ACID TABLET (FP) PO SCH (10:34)
[2017-07-18] MEDS: IBUPROFEN 400 MG TABLET (FP) PO PRN ×2 (10:35→21:31)
[2017-07-18] MEDS: THIAMINE HCL 100 MG TABLET (FP) PO SCH (21:30)
[2017-07-18] MEDS: CYCLOBENZAPRINE HCL 5 MG TABLET PO PRN (21:31)
[2017-07-19] MEDS: PRENATAL VITAMINS W/ FOLIC ACID TABLET (FP) PO SCH (10:03)
--- NOTE | 2017-07-19 11:11 | PN ---
Psychiatric Progress Note Vital Signs: Vital Signs Period Temp Pulse Resp BP Sys/Yanes Pulse Ox Last 24 Hr 97.8 F 86 16-18 112/67 Date of Session: 07/19/17 Chief Complaint:: insomnia HPI: Patient is addressing alcohol, cannabis dependence comorbid substance induced mood disorder. Current Medications: Active Medications Generic Name Dose Route Start Last Admin Trade Name Freq PRN Reason Stop Dose Admin Acetaminophen 650 mg 07/15/17 14:34 Tylenol - PO Q4H PRN FEVER Al Hydroxide/Mg Hydroxide 30 ml 07/15/17 14:34 Mylanta Oral Suspension - PO Q6H PRN DYSPEPSIA Cyclobenzaprine HCl 5 mg 07/15/17 14:34 07/18/17 21:31 Cyclobenzaprine Hcl PO 5 mg TID PRN Administration BACK PAIN Diphenhydramine HCl 50 mg 07/19/17 22:00 Benadryl - PO HS TEDDY Eucalyptus/Menthol/Phenol/Sorbitol 1 each 07/15/17 14:34 Cepastat Lozenge - MM Q4H PRN SORE THROAT Guaifenesin 10 ml 07/15/17 14:34 Robitussin Dm - PO Q6H PRN COUGH Hydroxyzine Pamoate 50 mg 07/15/17 14:34 Vistaril - PO Q4H PRN AGITATION Ibuprofen 400 mg 07/15/17 14:34 07/18/17 21:31 Motrin - PO 400 mg Q6H PRN Administration Pain Level 4-6 Loperamide HCl 4 mg 07/15/17 14:34 Imodium - PO Q6H PRN DIARRHEA Magnesium Citrate 300 ml 07/15/17 14:34 Citroma - PO Q48H PRN CONSTIPATION Magnesium Hydroxide 30 ml 07/15/17 14:34 Milk Of Magnesia - PO DAILY PRN CONSTIPATION Multivit/Folic Acid/Iron 1 tab 07/16/17 10:00 07/19/17 10:03 Vitamins (Sj[facility]) - PO 1 tab DAILY TEDDY Administration Pseudoephedrine/Triprolidine 1 combo 07/15/17 14:34 Actifed - PO TID PRN NASAL CONGESTION Thiamine HCl 100 mg 07/15/17 22:00 07/18/17 21:30 Vitamin B1 - PO 100 mg HS TEDDY Administration Current Side Effect: No Lab tests ordered: No Lab tests reviewed: Yes Provider note:: Patient was seen today , c/o insomnia, unable to sleep, reports he wants Benadryl liquid form. he offers no other complaints, will add Benadryl 50 mg liqid, continue to monitor. Total face to face time:: 15 Mental Status Exam - Mental Status Exam Alert and Oriented to: Time, Place, Person Cognitive Function: Good Patient Appearance: Well Groomed Mood: Hopeful Affect: Appropriate, Mood Congruent Patient Behavior: Cooperative Speech Pattern: Clear Voice Loudness: Normal Thought Process: Intact, Goal Oriented Thought Disorder: Not Present Hallucinations: Denies Suicidal Ideation: Denies Homicidal Ideation: Denies Insight/Judgement: Fair Sleep: Fair Appetite: Fair Muscle strength/Tone: Normal Gait/Station: Normal Psychiatric Treatment Plan - Problem List (1) Alcohol dependence Current Visit: Yes (2) Substance induced mood disorder Current Visit: No (3) Cannabis dependence Current Visit: No
[2017-07-19] MEDS: IBUPROFEN 400 MG TABLET (FP) PO PRN ×2 (11:19→21:29)
[2017-07-19] MEDS: CYCLOBENZAPRINE HCL 5 MG TABLET PO PRN (21:29)
[2017-07-19] MEDS: THIAMINE HCL 100 MG TABLET (FP) PO SCH (21:29)
[2017-07-19] MEDS ORDERED: diphenhydrAMINE HCL 12.5 MG/5 ML BULK BOTTLE PO SCH (22:00)
[2017-07-20 07:41] VITALS: BP 115/59; PULSE 80; TEMP 98.1
[2017-07-20] MEDS: PRENATAL VITAMINS W/ FOLIC ACID TABLET (FP) PO SCH (10:38)
--- NOTE | 2017-07-20 11:43 | PN ---
S Progress Note Note: Psychiatric nurse practitioner note: Called received by MAINOR Hernández stating patient wants to leave AMA. Nurse informed that patient has a right to leave. Nurse reports patient is alert and oriented X3 and denies suicidal ideation. MAINOR Hernández encouraged to contact psychiatrist by overhead pager if patient is mentally unstable.
--- NOTE | 2017-07-20 13:40 | PN ---
[facility] Progress Note Note: Received call from Mikala Abdi RN that patient is leaving AMA due to personal issues that he currently needs to attend to. Mikala Abdi RN stated that she will inform covering Psychiatric MD / [employer]. Patient denies any home prescribed medications. Evelina Mccoy NP
== END 2017-07-20 11:40 | disposition left against medical advice (07) | DRG 770 ==
LOC: YASAS 12:15 → Y5N 12:16
PROVIDERS: ADMIT Psychiatry & Neurology Psychiatry; ATTEND Psychiatry & Neurology Psychiatry
PROC: HZ42ZZZ Group Counseling for Substance Abuse Treatment, Cognitive-Behavioral (ICD-10-PCS; principal; 2017-07-15)
DX: F10.20 Alcohol dependence, uncomplicated (principal); F12.20 Cannabis dependence, uncomplicated; F19.24 Other psychoactive substance dependence with psychoactive substance-induced mood disorder; G47.00 Insomnia, unspecified